=== PATIENT | male | born 1950 | race Caucasian/White ===

== ENCOUNTER → 2018-03-13 | Outpatient (CLI) | payer OTHER | END | disposition home or self-care (01) | LOC: EKG 08:43 | DX: Z01.810 Encounter for preprocedural cardiovascular examination (principal) ==

== ENCOUNTER → 2018-03-13 | Outpatient (CLI) | payer OTHER | END | disposition home or self-care (01) | LOC: RAD 08:39 | DX: J45.30 Mild persistent asthma, uncomplicated (principal); Z01.811 Encounter for preprocedural respiratory examination ==

== ENCOUNTER 2018-05-16 07:50 | Outpatient (CLI) | payer OTHER | END 2018-05-16 08:09 | disposition home or self-care (01) | LOC: EKG 07:50 | DX: H35.342 Macular cyst, hole, or pseudohole, left eye (principal); I10 Essential (primary) hypertension ==

== ENCOUNTER 2018-07-09 08:32 | Outpatient (CLI) | payer OTHER | END 2018-07-09 08:43 | disposition home or self-care (01) | LOC: RAD 08:32 | DX: Z01.810 Encounter for preprocedural cardiovascular examination (principal) ==

== ENCOUNTER 2018-12-01 08:42 | Emergency (ER) | payer OTHER ==
[~2018-12-01] VITALS: Ht 180.3 cm; Wt 83.9 kg
== END 2018-12-01 10:02 | disposition home or self-care (01) ==
LOC: ER 08:42
DX: J02.9 Acute pharyngitis, unspecified (principal)

== ENCOUNTER 2019-03-22 07:16 | Emergency (ER) | payer OTHER ==
[~2019-03-22] VITALS: Ht 180.3 cm; Wt 83.9 kg
[2019-03-22] MEDS ORDERED: METFORMIN HCL500 MG PO (07:48)
[2019-03-22] MEDS ORDERED: ASPIR 8181 MG PO (07:48)
[2019-03-22] MEDS ORDERED: SYNTHROID137 MCG PO (07:48)
[2019-03-22] MEDS ORDERED: VITACEL TABLET1 EACH PO (07:49)
[2019-03-22] MEDS ORDERED: VALTREX1000 MG PO (07:49)
[2019-03-22] MEDS ORDERED: NEURONTIN300 MG PO (07:49)
[2019-03-22] MEDS ORDERED: ZANTAC150 M3 PO (07:49)
[2019-03-22] MEDS ORDERED: DESCOVY 200-251 EACH PO (07:50)
[2019-03-22] MEDS ORDERED: TIVICAY50 MG PO (07:51)
[2019-03-22] MEDS ORDERED: COZAAR50 MG PO (07:51)
[2019-03-22] MEDS ORDERED: CLONAZEPAM0.5 MG PO (07:51)
[2019-03-22] MEDS ORDERED: LIPITOR40 MG PO (07:52)
[2019-03-22] MEDS ORDERED: ZEGERID 40 MG1 EACH PO (07:52)
== END 2019-03-22 11:12 | disposition home or self-care (01) ==
LOC: ER 07:16
DX: J06.9 Acute upper respiratory infection, unspecified (principal)

== ENCOUNTER → 2019-05-20 | Outpatient (CLI) | payer OTHER ==
[~2019-05-20] MED LIST: ASPIR 8181 MG PO; CLONAZEPAM0.5 MG PO; COZAAR50 MG PO; DESCOVY 200-251 EACH PO; LIPITOR40 MG PO; METFORMIN HCL500 MG PO; NEURONTIN300 MG PO; SYNTHROID137 MCG PO; TIVICAY50 MG PO; VALTREX1000 MG PO; VITACEL TABLET1 EACH PO; ZANTAC150 M3 PO; ZEGERID 40 MG1 EACH PO
== END | disposition home or self-care (01) ==
LOC: RAD 15:09
DX: M54.2 Cervicalgia (principal)

== ENCOUNTER 2019-06-23 08:01 | Outpatient (CLI) | payer OTHER | END 2019-06-23 08:05 | disposition home or self-care (01) | LOC: RAD 08:01 | DX: M54.2 Cervicalgia (principal) ==

== ENCOUNTER 2021-01-12 09:46 | Outpatient (CLI) | payer OTHER | END 2021-01-12 09:51 | disposition home or self-care (01) | LOC: RAD 09:46 | PROVIDERS: ATTEND Internal Medicine | DX: R07.89 Other chest pain (principal) ==

== ENCOUNTER 2025-03-09 07:06 | Outpatient (CLI) | payer OTHER | END 2025-03-09 07:13 | disposition home or self-care (01) | LOC: RAD 07:06 | DX: B20 Human immunodeficiency virus [HIV] disease (principal); F01.A0 Vascular dementia, mild, without behavioral disturbance, psychotic disturbance, mood disturbance, and anxiety ==